=== PATIENT | female | born 1945 | race Caucasian/White ===

== ENCOUNTER 2021-12-06 11:17 | Emergency (ER) | payer MEDICARE, OTHER ==
[2021-12-06 12:56] LABS: HEMOGLOBIN 14.2 gm/dl (12.3-15.3); RED BLOOD COUNT 5.32 M/UL (4.00-5.10); WHITE BLOOD COUNT 6.6 K/UL (4.5-11.0)
[2021-12-06 13:29] LABS: BUN/CREATININE RATIO 19 (0-10)
== END 2021-12-06 15:08 | disposition home or self-care (01) ==
LOC: ER1 11:17
PROVIDERS: Family Medicine
DX: U07.1 COVID-19 (principal); I25.10 Atherosclerotic heart disease of native coronary artery without angina pectoris; E11.9 Type 2 diabetes mellitus without complications; I10 Essential (primary) hypertension; Z88.0 Allergy status to penicillin
CPT/HCPCS: 71045; 80053; 82550; 82553; 82962; 83874; 84484; 85025; 85379; 85610; 96374; 99285; J1885